=== PATIENT | male | born 1995 | race Caucasian/White ===

== ENCOUNTER 2018-03-02 13:47 | Emergency (ER) | payer BC ==
[2018-03-02 14:52] VITALS: BP 125/69
--- NOTE | 2018-03-02 15:40 | UC ---
Throat Pain/Nasal Juan HPI - HPI Summary HPI Summary: Patient presents to urgent care reporting progressive sore throat cough and congestion. Patient's been taking DayQuil with improvement. Patient states this morning he woke a thought his uvula was swollen. Patient took 1 dose of Keflex and 1 dose of prednisone left over from previous prescriptions. Patient states that uvula feels better. Patient states overall he feels better but was concerned it was swollen. Patient traveled here by car from [place]. Patient without any rash. No fevers. Patient with a cough is not productive. Patient without any nausea or vomiting. Patient eating and drinking normally. Patient denies known sick contacts. Patient did not get a flu vaccination this year. Pt does have and inhaler and has been using intermittently with improvement. Patient's medications reviewed this visit - History of Current Complaint Chief Complaint: UCRespiratory Stated Complaint: FEVER, THROAT CONCERN Time Seen by Provider: 03/02/18 15:37 Hx Obtained From: Patient Onset/Duration: Gradual Onset Severity: Mild Pain Intensity: 0 Pain Scale Used: 0-10 Numeric Cough: Nonproductive - Allergies/Home Medications Allergies/Adverse Reactions: Allergies Allergy/AdvReac Type Severity Reaction Status Date / Time No Known Allergies Allergy Unverified 03/02/18 14:49 Home Medications: Home Medications Albuterol HFA INHALER* [Ventolin HFA Inhaler*] 2 puff INH Q4H PRN 03/02/18 [ History Confirmed 03/02/18] Cephalexin CAP* [Keflex CAP*] 500 mg PO TID 03/02/18 [History Confirmed 03/02/18 ] Ibuprofen/Pseudoephedrine HCl [Advil Cold & Sinus] 1 tab PO ONCE 03/02/18 [ History Confirmed 03/02/18] [id number]/Folic AC/Nadh/Coq10 [Xyzbac 1 mg] 1 tab PO DAILY 03/02/18 [History Confirmed 03/02/18] predniSONE TAB* [Deltasone 10 MG TAB*] 10 mg PO DAILY 03/02/18 [History Confirmed 03/02/18] PMH/Surg Hx/FS Hx/Imm Hx Previously Healthy: Yes - Surgical History Surgical History: None - Family History Known Family History: Positive: Non-Contributory - Social History Occupation: Employed Part-time, Student Lives: With Family Alcohol Use: None Substance Use Type: None Smoking Status (MU): Never Smoked Tobacco Have You Smoked in the Last Year: No - Immunization History Most Recent Influenza Vaccination: 2013 Most Recent Pneumonia Vaccination: none Vaccination Up to Date: Yes Review of Systems All Other Systems Reviewed And Are Negative: Yes Constitutional: Positive: Fatigue ENT: Positive: Sore Throat, Nasal Discharge, Sinus Congestion, Sinus Pain/ Tenderness Respiratory: Positive: Cough Physical Exam - Summary Physical Exam Summary: Vital Signs Reviewed: Yes A+Ox3, no distress Eyes: Conjunctiva Clear, SHAY. EOM intact and full ENT: Hearing grossly normal mild fluid left ear. No erythema, no buldge. right TM without erythema, fluid turninates inflammed. + PND Pt with mild inflammation uvula, no exudate, + erythema throat Neck: Positive: Supple, no lymphadenopathy Respiratory: Positive: No respiratory distress, No accessory muscle use + CTA throughout no w/r Cardiovascular: RRR nl s1, s2 no m/r CBT <2 sec abd soft + BS nt/nd no guarding, no distension Musculoskeletal Exam: VASQUEZ x 4 without difficulty Strength Intact, ROM Intact Neurological: Positive: Alert, + sensation throughout Psychological: Positive: Normal Response To Family Skin: Positive: no rash, no ecchymosis Triage Information Reviewed: Yes Vital Signs: Initial Vital Signs Temp 98.7 F 03/02/18 14:45 Pulse 93 03/02/18 14:45 Resp 16 03/02/18 14:45 BP 125/69 03/02/18 14:45 Pulse Ox 99 03/02/18 14:45 Throat Pain/Nasal Course/Dx - Course Course Of Treatment: Patient presents to urgent care with progressive congestion , sore throat, cough. Patient's been taking NyQuil, DayQuil, and his inhaler with improvement. This morning patient states is pretty well felt his uvula was swollen. Patient took 1 dose of prednisone and Keflex left over from previous prescriptions. Patient states he is feeling better but wanted checked as he was concerned about his uvula. On exam vital signs are stable. No intraoral edema. Patient does have mild fullness of his uvula but no concern for airway obstruction. Will give patient prednisone for 5 days and Flonase. We'll prescribe antibiotics but instructed patient to hopefully hours before starting. Patient comfortable in agreement with plan. Patient states he has enough of his albuterol to get home. We'll give patient some albuterol for his nebulizer however is easily so. Strict return precautions. Humidified air. Motrin/Tylenol. Secretion precaution. Return precaution. - Differential Dx/Diagnosis Provider Diagnosis: Uvulitis, URI (upper respiratory infection) Discharge - Sign-Out/Discharge Documenting (check all that apply): Patient Departure All imaging exams completed and their final reports reviewed: No Studies - Discharge Plan Condition: Stable Disposition: HOME Prescriptions: Albuterol 2.5MG/3ML (0.083%)* [Ventolin 2.5 MG/3 ML NEB.RAGHAVENDRA*] 2.5 mg INH Q4H # 30 neb.raghavendra Amoxicillin PO (*) [Amoxicillin 875 MG (*)] 875 mg PO BID #20 tab Fluticasone NASAL SPRAY 50MCG* [Flonase NASAL SPRAY 50MCG*] 2 spray BOTH NARES DAILY #1 btl predniSONE TAB* [Deltasone 20 MG TAB*] 20 mg PO DAILY #10 tab Patient Education Materials: Pharyngitis (ED), Uvulitis (ED), Serous Otitis Media (ED) Referrals: No Primary Care Phys,NOPCP [Primary Care Provider] - Additional Instructions: -Take antibiotics exactly as prescribed until gone -Use your albuterol puffer - 2 puffs lucy 3 hours for the next 2 days - then as needed -Stay well hydrated - avoid excess caffeine and all alcohol - eat regular, healthy meals - - humidify the air in the room where you sleep - boil water, run a hot steam shower, vaporizer, cups of water by heat register -gargle and spit with warm, salt water 2-3 times a day - okay to take over the counter decongestant and cough medication - Take prednisone and nasal spray as instructed - If you continue to have symptoms after 48 horus - start antibiotics as prescribed. -- These infections are spread by secretions - do NOT share eating or drinking utensils - clean items you share with other people such as cell phones, computer mouse, TV remote, computer tablets,etc.. Once you have been antibiotics OR if you start to feel better, change your toothbrush and your pillowcase. -Contact your doctor to arrange a follow-up appointment this week. Call your doctor, return here or go to the emergency department with any questions or concerns - Billing Disposition and Condition Condition: STABLE Disposition: Home
== END 2018-03-02 16:03 | disposition home or self-care (01) ==
LOC: UCCORT 13:47
DX: K12.2 Cellulitis and abscess of mouth (principal); J06.9 Acute upper respiratory infection, unspecified
CPT/HCPCS: 87651; 99202; G0463